=== PATIENT | male | born 1965 | race Caucasian/White ===

== ENCOUNTER 2016-11-25 16:56 | Outpatient (CLI) | payer OTHER ==
[2016-03-20 14:03] VITALS: BP 178/94
== END 2016-11-25 16:57 ==
LOC: LAB 16:56
PROVIDERS: ATTEND Family Medicine
DX: E11.9 Type 2 diabetes mellitus without complications (principal)
CPT/HCPCS: 36415; 83036

== ENCOUNTER → 2016-12-17 | Outpatient (CLI) | payer OTHER ==
[2016-03-20 14:03] VITALS: BP 178/94
[2016-12-17 09:48] LABS: BASOPHILS % 0.7 (0.0-1.5); EOSINOPHILS % 5.7 % (0.0-6.8); MEAN CORPUSCULAR HEMOGLOBIN 29.3 pg (28.0-34.0); MEAN CORPUSCULAR VOLUME 86.4 fl (80.0-100.0); MONOCYTES % 4.2 % (0.0-11.0); NEUTROPHILS # 2.6 # k/uL (1.4-7.7)
[2016-12-17 10:15] LABS: BILIRUBIN,DIRECT 0.1 mg/dL (0.0-0.4)
== END ==
LOC: LAB 09:35
PROVIDERS: ATTEND Psychiatry & Neurology Psychiatry
DX: Z79.899 Other long term (current) drug therapy (principal)
CPT/HCPCS: 36415; 80076; 80164; 85025

== ENCOUNTER 2017-01-04 19:16 | Emergency (ER) | payer OTHER ==
--- NOTE | 2017-01-04 19:59 | ED Physician Documentation ---
Dyspnea - HISTORIAN Historian: patient - HPI Chief Complaint: Wheezing Onset: other (7 days ago) Further Comments: yes (51 year male patient presents with complaints of cough and SOB. Patient reports symptoms started on Wednesday. C/O nausea today. Patient to strong fruity smell, respirations mildly labored. RR 26-30. Bedside glucose 409. Patient reports last insulin dose was on Wednesday.) - ROS CONST: no problems EYES/ENT: none GI/: nausea. denies: vomiting, diarrhea NEURO/PSYCH: denies: headache MS/SKIN/LYMPH: none - PAST HX Lung Disease: none Surgeries/Procedures: other ("Pancreas surgery" 8 years ago at [facility] - Mother unsure of exact surgery) Other History: diabetes Type 2 Allergies/Adverse Reactions: Allergies Allergy/AdvReac Type Severity Reaction Status Date / Time No Known Allergies Allergy Verified 03/18/16 11:00 Home Medications: Ambulatory Orders Medication Instructions Recorded Naltrexone HCl 100 mg PO DAILY #60 u2 10/04/12 Tramadol HCl [Ultram] 50 mg PO Q6H PRN #15 tablet 03/18/16 - SOCIAL HX Smoking History: non-smoker Alcohol Use: other (History of abuse) - FAMILY HX Family History: denies: none - VITAL SIGNS Vital Signs: Vital Signs Temp Pulse Resp BP Pulse Ox 178/94 03/20/16 13:45 - REVIEWED ASSESSMENTS Nursing Assessment Reviewed: Yes Vitals Reviewed: Yes Progress - Progress Progress: Dr Eric at bedside; 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 2119 Reviewed lab findings with patient and mother; recommended transfer to ICU. Patient prefers [facility] [address] Jackson at [facility], accepted for transfer to ICU. Discussed HCO3 - will not give IV bicarb; continue to give fluids, orders to start Insulin drip. Nursing just able to establish second IV line. Chest xray not obtained. Will defer chest xray to [facility]. 2244 Vitals remain stable. 2L NS infused, insulin drip remains at 5U/hr; glucose down to 320 - EKG/XRAY/CT EKG: rhythm (ST, rate 123) ED Results Lab/Radiology - Radiology Radiology Impressions: Examination: Portable chest History: Chest discomfort Comparison exam: 17 November 2016 Findings: Single view of the chest demonstrates a normal cardiac and mediastinal silhouette. Lung blunt without focal infiltrate. No effusion. Osseous structures are appropriate for age. Impression: No acute pulmonary process. Electronically signed on Jan 04, 2017 7:56:16 PM CDT by: Onel Delgado - Orders Orders: ED Orders Category Date Time Status Continuous EKG monitoring Q30M Care 01/04/17 19:[address] IV Lock 1T Care 01/04/17 19:53 Active CBC/PLATELET/DIFF Stat Lab 01/04/17 19:41 Ordered CMP Stat Lab 01/04/17 19:41 Ordered TROPONIN I (cTnI) Stat Lab 01/04/17 19:56 Ordered UA W/MICRO IF INDICATED Stat Lab 01/04/17 19:41 Ordered Oxygen Daily Oxygen 01/04/17 20:00 Ordered EKG WITH COMPARISON Stat Ther 01/04/17 19:56 Ordered Dyspnea Physical Exam - EXAM General Appearance: moderate distress, other (fruity odor from breath) EENT: eye inspection normal, JORGE LUIS Respiratory: breath sounds nml, speaks full sentences, accessory muscle use CVS: no murmur, no gallop, no friction rub, pulses full, pulses equal, tachycardia Abdomen: non-tender, no organomegaly, no distention, no ascites Skin: color nml, no rash, warm, nml palp., dry Extremities: non-tender, normal range of motion, no evidence of injury, no edema , J, GEOLOGY TECHNICIAN Neuro/Psych: oriented x3, CN's nml as tested, motor nml, sensation nml, mood/ affect nml Discharge Clincal Impression: Hyponatremia, Dehydration, Non compliance w medication regimen DKA (diabetic ketoacidoses) Qualifiers: Diabetes mellitus type: type 2 Diabetes mellitus complication detail: without coma Qualified Code(s): E13.10 - Other specified diabetes mellitus with ketoacidosis without coma Referrals: Domenico Eric MD [Primary Care Provider] - 2 Days Home Medications: Ambulatory Orders Naltrexone HCl 100 mg PO DAILY #60 u2 10/04/12 Tramadol HCl [Ultram] 50 mg PO Q6H PRN #15 tablet 03/18/16 Condition: Fair Disposition: 02 XFER [facility] Decision to Admit: NO Decision Time: 22:48
[2017-01-04 20:28] LABS: eGFR (African) 49; eGFR (Non-African) 40
[2017-01-04 20:43] LABS: MEAN CORPUSCULAR HEMOGLOBIN 29.5 pg (28.0-34.0); MEAN CORPUSCULAR VOLUME 91.1 fl (80.0-100.0)
[2017-01-04] MEDS: INSULIN REGULAR, HUMAN 100 UNIT/ML 3ML VIAL IV ONE ×2 (21:04→21:21)
[2017-01-04] MEDS: 0.9 % SODIUM CHLORIDE 1,000 ML IV ONE ×2 (21:15→21:45)
[2017-01-04] MEDS ORDERED: 0.9 % SODIUM CHLORIDE 100 ML IV ONE (21:33)
[2017-01-04] MEDS: INSULIN REGULAR, HUMAN 100 UNIT in 0.9 % SODIUM CHLORIDE 100 ML IV ONE ×2 (21:40)
[2017-01-04 23:26] VITALS: BP 119/78
[2017-01-05 05:39] LABS: APPEARANCE,URINE CLEAR (CLEAR); COLOR,URINE YELLOW (YELLOW); OCCULT BLOOD,URINE 2+ (NEGATIVE); PH URINE 5.5 (5.0 - 8.0); UROBILINOGEN URINE 0.2 Eu (0.2-1.0)
[2017-01-05 08:23] LABS: SEGMENTED NEUTROPHILS % 70 % (39-79)
[2017-01-05 08:24] LABS: MONOCYTES % 12 % (0-11)
== END 2017-01-04 22:45 | disposition short-term general hospital (02) ==
LOC: ED 19:16
DX: E87.1 Hypo-osmolality and hyponatremia (principal); E86.0 Dehydration; E13.10 Other specified diabetes mellitus with ketoacidosis without coma; Z91.14 Patient's other noncompliance with medication regimen
CPT/HCPCS: 80053; 80320; 81002; 82150; 84484; 85025; 93005; J1815; J7030; 96361; 96374; 99284; G0480; S1016

== ENCOUNTER 2017-02-04 12:03 | Outpatient (CLI) | payer OTHER ==
[2017-02-04 12:37] LABS: BASOPHILS % 1.3 (0.0-1.5); MEAN CORPUSCULAR HEMOGLOBIN 29.2 pg (28.0-34.0)
[2017-02-04 12:49] LABS: EOSINOPHILS % 5.1 % (0.0-6.8); MONOCYTES % 12.8 % (0.0-11.0)
[2017-02-04 12:50] LABS: NEUTROPHILS # 2.5 # k/uL (1.4-7.7)
[2017-02-04 20:11] LABS: DIRECT BILIRUBIN <0.2 mg/dL (<0.4); TOTAL PROTEIN 6.1 g/dL (6.0-8.5)
== END 2017-02-04 12:04 ==
LOC: LAB 12:03
PROVIDERS: ATTEND Psychiatry & Neurology Psychiatry
DX: Z79.899 Other long term (current) drug therapy (principal)
CPT/HCPCS: 36415; 80076; 80164; 85025

== ENCOUNTER 2017-10-08 15:50 | Outpatient (CLI) | payer OTHER | END 2017-10-08 15:52 | LOC: OUT 15:50 | PROVIDERS: ATTEND Family Medicine | DX: E11.9 Type 2 diabetes mellitus without complications (principal) | CPT/HCPCS: 99211; G0270 ==

== ENCOUNTER 2018-06-03 17:12 | Outpatient (CLI) | payer OTHER | END 2018-06-03 17:13 | LOC: LAB 17:12 | PROVIDERS: ATTEND Family Medicine | DX: E11.9 Type 2 diabetes mellitus without complications (principal) | CPT/HCPCS: 36415; 83036 ==

== ENCOUNTER 2019-02-01 12:01 | Outpatient (CLI) | payer OTHER ==
[2019-02-13 13:44] LABS: A1C 8.2 % (<5.7); BASOPHILS % 0.4 % (0.0-1.5); NEUTROPHILS # 2.7 # k/uL (1.4-7.7); eGFR (Non-African) 60
[2019-02-13 13:45] LABS: HDL 73 mg/dL (>40)
== END 2019-02-01 12:30 ==
LOC: LAB 12:01
PROVIDERS: ATTEND Family Medicine
DX: E11.9 Type 2 diabetes mellitus without complications (principal); I10 Essential (primary) hypertension; Z79.899 Other long term (current) drug therapy
CPT/HCPCS: 36415; 80053; 80061; 80164; 83036; 84439; 84443; 85025